=== PATIENT | male | born 1955 | race African-American/Black ===

== ENCOUNTER 2019-04-27 06:50 | Outpatient (CLI) | payer OTHER ==
[2019-04-27 07:51] LABS: Dilantin 13.2 ug/mL (10.0-20.0)
[2019-04-27 07:52] LABS: ALT (SGPT) 44 U/L (8-55); AST (SGOT) 61 U/L (5-34); Albumin 3.8 g/dL (3.4-4.8); Alkaline Phosphatase 87 U/L (40-150); Anion Gap 18 mmol/L (10-20); BUN (Urea Nitrogen) 15 mg/dL (8.4-25.7); Bilirubin, Total 0.5 mg/dL (0.2-1.2); Calc. Creatinine Clearance 0 mL/min (70-130); Calcium 9.5 mg/dL (7.8-10.44); Carbon Dioxide 26 mmol/L (23-31); Chloride 97 mmol/L (98-107); Estimated GFR-MDRD Greater than 90; Globulin 3.4 g/dL (2.4-3.5); Glucose 161 mg/dL (80-115); Potassium 4.2 mmol/L (3.5-5.1); Protein, Total 7.2 g/dL (5.8-8.1); Sodium 137 mmol/L (136-145)
[2019-04-27 08:09] LABS: #Lymphocytes 1.4 thou/uL (1.20-3.40); #Monocytes 0.6 thou/uL (0.11-0.59); #Neutrophils 3.9 thou/uL (1.40-6.50); %Basophils 0.4 % (0.0-1.0); %Eosinophils 0.3 % (0.0-10.0); %Lymphocytes 24.4 % (21.0-51.0); %Monocytes 9.7 % (0.0-10.0); %Neutrophils 65.2 % (42.0-75.0); Hemoglobin 13.7 g/dL (14.0-18.0); Mean Corpuscular Hemoglobin 31.6 pg (27.0-31.0); Mean Corpuscular Volume 98.6 fL (78.0-98.0); Platelet Count 78 thou/uL (130-400); RBC Distribution Width 11.2 % (11.5-14.5); Red Blood Cell (RBC) Count 4.32 mill/uL (4.70-6.10); White Blood Cell (WBC) Count 5.9 thou/uL (4.8-10.8)
[2019-04-27 08:10] LABS: Platelet Morphology Comment Appears Decreased
== END 2019-04-27 06:51 | disposition home or self-care (01) ==
LOC: NAV LAB 06:50
PROVIDERS: ATTEND Internal Medicine
DX: B18.2 Chronic viral hepatitis C (principal); N39.0 Urinary tract infection, site not specified; I10 Essential (primary) hypertension; E11.9 Type 2 diabetes mellitus without complications
CPT/HCPCS: 36415; 80053; 80185; 85025

== ENCOUNTER 2019-05-16 13:40 | Outpatient (CLI) | payer OTHER | END 2019-05-16 13:41 | disposition home or self-care (01) | LOC: NAV LABSP 13:40 | PROVIDERS: ATTEND Internal Medicine | DX: R56.9 Unspecified convulsions (principal) | CPT/HCPCS: 80177; 80185 ==

== ENCOUNTER 2019-05-18 08:02 | Outpatient (CLI) | payer OTHER | END 2019-05-18 08:03 | disposition home or self-care (01) | LOC: NAV LABSP 08:02 | PROVIDERS: ATTEND Internal Medicine | DX: R56.9 Unspecified convulsions (principal) | CPT/HCPCS: 36415; 80185 ==

== ENCOUNTER 2020-01-09 20:37 | Emergency (ER) | payer OTHER ==
[2020-01-09] MEDS ORDERED: Sodium Chloride 0.9% 1,000 ML ONE (21:05)
[2020-01-09] MEDS ORDERED: Ibuprofen 800 MG TAB ONE (21:05)
[2020-01-09] MEDS ORDERED: Cefepime 2 GM VIAL ONE (21:05)
[2020-01-09 21:28] LABS: #Basophils 0.2 thou/uL (0.0-0.2); #Lymphocytes 1.5 thou/uL (1.20-3.40); #Monocytes 0.9 thou/uL (0.11-0.59); #Neutrophils 9.3 thou/uL (1.40-6.50); %Basophils 1.7 % (0.0-1.0); %Eosinophils 0.1 % (0.0-10.0); %Lymphocytes 12.3 % (21.0-51.0); %Monocytes 7.8 % (0.0-10.0); %Neutrophils 78.2 % (42.0-75.0); Hemoglobin 12.7 g/dL (14.0-18.0); Mean Corpuscular HGB CONC 31.8 g/dL (32.0-36.0); Mean Corpuscular Hemoglobin 29.3 pg (27.0-31.0); Mean Corpuscular Volume 92.1 fL (78.0-98.0); Mean Platelet Volume 12.7 fL (7.4-10.4); Platelet Count 202 thou/uL (130-400); RBC Distribution Width 11.5 % (11.5-14.5); Red Blood Cell (RBC) Count 4.33 mill/uL (4.70-6.10); White Blood Cell (WBC) Count 11.8 thou/uL (4.8-10.8)
[2020-01-09 21:41] LABS: ALT (SGPT) 21 U/L (8-55); AST (SGOT) 32 U/L (5-34); Albumin 3.7 g/dL (3.4-4.8); Alkaline Phosphatase 119 U/L (40-110); Anion Gap 18 mmol/L (10-20); BUN (Urea Nitrogen) 15 mg/dL (8.4-25.7); Bilirubin, Total 0.4 mg/dL (0.2-1.2); Calc. Creatinine Clearance 0 mL/min (70-130); Calcium 9.4 mg/dL (7.8-10.44); Carbon Dioxide 23 mmol/L (23-31); Chloride 95 mmol/L (98-107); Estimated GFR-MDRD Greater than 90; Globulin 4.7 g/dL (2.4-3.5); Glucose 314 mg/dL (80-115); Potassium 4.4 mmol/L (3.5-5.1); Protein, Total 8.4 g/dL (5.8-8.1); Sodium 132 mmol/L (136-145)
[2020-01-09 21:44] LABS: Bilirubin Small (Negative); Blood, Urine Moderate (Negative); Glucose, Urine (Dipstick) 500 mg/dL (Negative); Leukocyte Negative (Negative); Nitrite Positive (Negative); Protein, Urine (Dipstick) > or equal to 300 mg/dL (Neg-Trace)
[2020-01-09 21:45] LABS: Clarity Slightly Cloudy (Clear)
[2020-01-09 21:52] LABS: Bacteria/HPF 3+ HPF (None Seen)
--- NOTE | 2020-01-09 22:03 | RAD ---
AP CHEST: History: Cough Comparison: 09-06-16 FINDINGS: Left sided effusion with left basilar infiltrate and/or atelectasis. Lungs otherwise clear. Heart and mediastinum unremarkable. IMPRESSION: Left effusion and left basilar atelectasis/infiltrate. POS: [facility]
== END 2020-01-09 22:48 | disposition short-term general hospital (02) ==
LOC: NAV ERS 20:37
DX: A41.9 Sepsis, unspecified organism (principal); N39.0 Urinary tract infection, site not specified; J18.9 Pneumonia, unspecified organism; I25.10 Atherosclerotic heart disease of native coronary artery without angina pectoris; E11.9 Type 2 diabetes mellitus without complications; I10 Essential (primary) hypertension; F03.90 Unspecified dementia, unspecified severity, without behavioral disturbance, psychotic disturbance, mood disturbance, and anxiety; Z79.84 Long term (current) use of oral hypoglycemic drugs; Z79.899 Other long term (current) drug therapy
CPT/HCPCS: 36415; 51701; 71045; 80053; 80185; 81003; 81015; 82140; 83605; 85025; 87040; 87077; 87086; 87186; 87804; 96365; 96367; J0692; J1956; J7050

== ENCOUNTER 2020-01-16 04:22 | Inpatient (IN) | payer OTHER ==
[2020-01-16] MEDS ORDERED: Sodium Chloride 0.9% 1,000 ML ONE (06:09)
[2020-01-16 06:24] LABS: ALT (SGPT) 29 U/L (8-55); AST (SGOT) 60 U/L (5-34); Albumin 3.7 g/dL (3.4-4.8); Alkaline Phosphatase 178 U/L (40-110); Anion Gap 22 mmol/L (10-20); BUN (Urea Nitrogen) 29 mg/dL (8.4-25.7); Bilirubin, Total 0.8 mg/dL (0.2-1.2); Calc. Creatinine Clearance 0 mL/min (70-130); Calcium 10.1 mg/dL (7.8-10.44); Carbon Dioxide 22 mmol/L (23-31); Chloride 102 mmol/L (98-107); Estimated GFR-MDRD 85; Globulin 5.6 g/dL (2.4-3.5); Glucose 160 mg/dL (80-115); Potassium 4.4 mmol/L (3.5-5.1); Protein, Total 9.3 g/dL (5.8-8.1); Sodium 142 mmol/L (136-145)
[2020-01-16] MEDS ORDERED: Sodium Chloride 0.9% 100 ML ONE (06:30)
[2020-01-16] MEDS ORDERED: Piperacillin/Tazobactam 4.5 GM VIAL ONE (06:30)
[2020-01-16 06:31] LABS: Band 11 % (5-11); Hemoglobin 13.2 g/dL (14.0-18.0); Lymphocytes 18 % (21-51); MDiff Complete? YES; Mean Corpuscular HGB CONC 30.8 g/dL (32.0-36.0); Mean Corpuscular Hemoglobin 28.6 pg (27.0-31.0); Mean Corpuscular Volume 92.9 fL (78.0-98.0); Monocytes 5 % (0-10); Neutrophil 66 % (42-75); Platelet Count 247 thou/uL (130-400); Platelet Morphology Comment Appears Adequate; RBC Distribution Width 12.2 % (11.5-14.5); RBC Morphology Normal; Red Blood Cell (RBC) Count 4.62 mill/uL (4.70-6.10); White Blood Cell (WBC) Count 18.4 thou/uL (4.8-10.8)
[2020-01-16 06:35] LABS: Bilirubin Small (Negative); Blood, Urine Trace (Negative); Clarity Clear (Clear); Glucose, Urine (Dipstick) 250 mg/dL (Negative); Leukocyte Negative (Negative); Nitrite Negative (Negative); Protein, Urine (Dipstick) > or equal to 300 mg/dL (Neg-Trace)
[2020-01-16 06:38] LABS: Bacteria/HPF 1+ HPF (None Seen); RBC/HPF 0-3 HPF (0-3); Squamous Epithelial 0-3 HPF (0-3); WBC/HPF 0-3 HPF (0-3)
[2020-01-16] MEDS ORDERED: Sodium Chloride 0.9% 1,000 ML IV SCH (06:40)
[2020-01-16] MEDS ORDERED: Ondansetron PF 4 MG/2 ML Vial IVP PRN ×2 (06:40→10:55)
[2020-01-16] MEDS ORDERED: Ondansetron ODT 4 MG TAB SL PRN (06:40)
--- NOTE | 2020-01-16 07:59 | RAD ---
XR Chest 1 View Portable HISTORY: Fever, negative test for Covid-19 COMPARISON: 01/09/2020 FINDINGS: The heart size normal. There is a small left pleural effusion with left basilar infiltrate/ atelectatic change.
[2020-01-16] MEDS: Sodium Chloride 0.9% 1,000 ML IV SCH ×2 (08:30→16:24)
[2020-01-16] MEDS ORDERED: Acetaminophen 325 MG TAB PO PRN (09:44)
[2020-01-16] MEDS ORDERED: Dextrose 50% Abboject 50 ML SYRINGE IVP PRN (09:54)
[2020-01-16] MEDS ORDERED: Dextrose 5% in Water 1,000 ML IV PRN (09:54)
[2020-01-16] MEDS ORDERED: ACETAMINOPHEN 650 MG PER TUBE PRN (10:58)
[2020-01-16 11:03] LABS: Lactic Acid 1.2 mmol/L (0.5-2.2)
[2020-01-16] MEDS ORDERED: levETIRAcetam 500 mg/5 ml Oral Solution PER TUBE SCH (11:30)
[2020-01-16] MEDS ORDERED: FLU VACC QS2019-20(6MOS UP)/PF 60 MCG/0.5 ML SYRINGE IM ONE (11:30)
[2020-01-16] MEDS: Piperacillin/Tazobactam 3.375 GM in Sodium Chloride 0.9% 100 ML IVPB SCH ×2 (11:49→17:22)
--- NOTE | 2020-01-16 16:31 | HP ---
HISTORY OF PRESENT ILLNESS: The patient is an unfortunate 64-year-old black male, living at jail for many years because of dementia and altered mental status secondary to most likely hepatic encephalopathy from hepatitis C and alcohol abuse. He has recently been admitted to [facility] for an episode of sepsis syndrome, found to be due to resistant Pseudomonas infection. He was discharged home on fosfomycin orally, but apparently this was unable to be obtained at the jail and for the last three days he has continued to have fever, become progressively worse to 103, minimally responsive. He was therefore sent to [facility] ER, where he was found to be having sepsis syndrome with pulse of 125, blood pressure 148/83, O2 saturation 89% on room air. His temperature was 101.5 after Tylenol at the jail. He was found at the last admission to have also questionable pneumonia, which was being treated also, but felt this was not the cause of his sepsis as he had a chronic left pleural effusion and left basilar atelectasis. As mentioned above, he has a longstanding history of dementia secondary to hepatic encephalopathy from hep C and IV drug abuse and also has recurrent seizures on medications with breakthrough seizures and he is noncompliant. He is a PEG tube feeder, because of his altered mental status and has had episodes of aspiration pneumonia in the past, however, in the emergency room this time, his lungs appeared to be clear. His chest x-ray did show persistent left basilar atelectasis. He had been checked for COVID-19 previously. As mentioned above, had responded to the Zosyn in the [facility] as he was resistant to quinolones. He also has a past history of type 2 diabetes, which has been well controlled and distant coronary artery disease with no recent recurrences. MEDICATIONS: On presentation to the hospital included; 1. Pepcid 20 mg twice daily. 2. Humulin N at 30 units at night, 60 units in the morning with a mild sliding scale. 3. Keppra 750 daily. 4. Metformin 1000 mg twice daily. 5. Zofran as needed. 6. Dilantin 300 mg daily. REVIEW OF SYSTEMS: Unobtainable as he is minimally responsive. PHYSICAL EXAMINATION: VITAL SIGNS: Objective however shows his vital signs to improve markedly with a temperature of 97.9, now pulse down to 101, blood pressure 135/74, O2 sats 96% on 2 L. LUNGS: Clear. CARDIAC: Shows rapid regular rhythm. ABDOMEN: Soft and nontender with PEG tube in place. SKIN/EXTREMITIES: Show decreased skin turgor. No edema, clubbing, cyanosis. NEUROLOGICAL: Showed no focal defects. LABORATORY DATA: Laboratory showed white count of 18,400, hematocrit 42, hemoglobin 13. Sodium 142, potassium 4.4, chloride 102, bicarb 22, BUN 29, creatinine 1.07, glucose 160, calcium 10.1. Lactic acid was slightly elevated at 2.1, total bilirubin 0.8, AST 60, ALT 29. BNP 82. Albumin 3.7. He was given a dose of Zosyn in the emergency room, started on his Dilantin 300 mg per tube daily, his Humulin N 60 units in the morning and 30 units in the evening, Tylenol as needed, Pepcid 20 twice daily, was given a bolus of 1000 saline in the emergency room. ASSESSMENT: 1. Recurrent resistant Pseudomonas urinary tract infection and sepsis. Blood and urine cultures have been drawn and the patient has been started back on his Zosyn. 2. Hepatic encephalopathy with altered mental status. Still not back at baseline as the patient is usually alert, but confused, but now is responsive only to pain, but appears to be in no distress. 3. Seizure disorder, controlled on Dilantin and we will continue the Dilantin and check Dilantin level. 4. Insulin-dependent diabetes, controlled on Humulin N twice daily and sliding scale, as well as metformin and we will continue this. Job ID: [id number]
[2020-01-16] MEDS: metFORMIN 500 MG TAB PER TUBE SCH (17:04)
[2020-01-16] MEDS ORDERED: metFORMIN 500 MG TAB PER TUBE SCH (21:00)
[2020-01-16] MEDS ORDERED: Zantac Syrup 75 MG/5 ML UDCUP PER TUBE SCH (21:00)
[2020-01-16] MEDS ORDERED: Famotidine 20 MG TAB PER TUBE SCH (21:00)
[2020-01-16] MEDS: Famotidine 20 MG TAB PER TUBE SCH (21:36)
[2020-01-16] MEDS: NPH, Human Insulin Isophane 300 UNIT/3 ML VIAL SC SCH (21:36)
[2020-01-17] MEDS: Piperacillin/Tazobactam 3.375 GM in Sodium Chloride 0.9% 100 ML IVPB SCH ×5 (00:23→23:49)
[2020-01-17] MEDS: Sodium Chloride 0.9% 1,000 ML IV SCH ×2 (02:48→12:04)
[2020-01-17 06:23] LABS: ALT (SGPT) 22 U/L (8-55); AST (SGOT) 45 U/L (5-34); Alkaline Phosphatase 144 U/L (40-110); Anion Gap 17 mmol/L (10-20); BUN (Urea Nitrogen) 19 mg/dL (8.4-25.7); Bilirubin, Total 0.9 mg/dL (0.2-1.2); Calc. Creatinine Clearance 101 mL/min (70-130); Calcium 8.7 mg/dL (7.8-10.44); Carbon Dioxide 21 mmol/L (23-31); Chloride 109 mmol/L (98-107); Estimated GFR-MDRD Greater than 90; Globulin 4.3 g/dL (2.4-3.5); Glucose 167 mg/dL (80-115); Potassium 3.8 mmol/L (3.5-5.1); Protein, Total 7.3 g/dL (5.8-8.1); Sodium 143 mmol/L (136-145)
[2020-01-17 06:29] LABS: #Basophils 0.1 thou/uL (0.0-0.2); #Eosinphils 0.1 thou/uL (0.0-0.7); #Lymphocytes 1.1 thou/uL (1.20-3.40); #Monocytes 0.7 thou/uL (0.11-0.59); #Neutrophils 7.4 thou/uL (1.40-6.50); %Basophils 0.7 % (0.0-1.0); %Eosinophils 0.6 % (0.0-10.0); %Monocytes 7.3 % (0.0-10.0); %Neutrophils 79.5 % (42.0-75.0); Hypochromia SLIGHT = 6-15 cells (100X) (0-5/hpf); MDiff Complete? YES; Mean Corpuscular HGB CONC 30.6 g/dL (32.0-36.0); Mean Corpuscular Volume 94.9 fL (78.0-98.0); Mean Platelet Volume 11.3 fL (7.4-10.4); Platelet Count 158 thou/uL (130-400); Platelet Morphology Comment Appears Adequate; RBC Distribution Width 12.8 % (11.5-14.5); Red Blood Cell (RBC) Count 3.45 mill/uL (4.70-6.10); White Blood Cell (WBC) Count 9.4 thou/uL (4.8-10.8)
[2020-01-17] MEDS: metFORMIN 500 MG TAB PER TUBE SCH ×2 (08:39→16:45)
[2020-01-17] MEDS: Famotidine 20 MG TAB PER TUBE SCH ×2 (08:40→21:37)
[2020-01-17] MEDS: levETIRAcetam 500 mg/5 ml Oral Solution PER TUBE SCH (08:41)
[2020-01-17] MEDS: NPH, Human Insulin Isophane 300 UNIT/3 ML VIAL SC SCH ×2 (08:44→21:37)
[2020-01-17] MEDS ORDERED: levETIRAcetam 500 mg/5 ml Oral Solution PER TUBE SCH (09:00)
[2020-01-17] MEDS ORDERED: PHENYTOIN 125 MG PER TUBE SCH (09:00)
[2020-01-17] MEDS ORDERED: LEVETIRACETAM 750 MG PER TUBE SCH (09:00)
[2020-01-17] MEDS: Insulin Regular 300 UNITS/3 ML VIAL SC PRN (12:28)
[2020-01-17 14:47] VITALS: BMI 21.8
[2020-01-17 17:40] LABS: #Lymphocytes 1.1 thou/uL (1.20-3.40); #Monocytes 0.5 thou/uL (0.11-0.59); #Neutrophils 5.6 thou/uL (1.40-6.50); %Basophils 0.4 % (0.0-1.0); %Eosinophils 0.7 % (0.0-10.0); %Lymphocytes 14.9 % (21.0-51.0); %Monocytes 6.3 % (0.0-10.0); %Neutrophils 77.7 % (42.0-75.0); Hemoglobin 9.5 g/dL (14.0-18.0); Mean Corpuscular HGB CONC 30.6 g/dL (32.0-36.0); Mean Corpuscular Hemoglobin 28.8 pg (27.0-31.0); Mean Platelet Volume 11.2 fL (7.4-10.4); Platelet Count 165 thou/uL (130-400); RBC Distribution Width 12.7 % (11.5-14.5); White Blood Cell (WBC) Count 7.3 thou/uL (4.8-10.8)
[2020-01-17 18:11] LABS: Anion Gap 16 mmol/L (10-20); BUN (Urea Nitrogen) 16 mg/dL (8.4-25.7); Calc. Creatinine Clearance 108 mL/min (70-130); Calcium 8.7 mg/dL (7.8-10.44); Carbon Dioxide 22 mmol/L (23-31); Chloride 109 mmol/L (98-107); Estimated GFR-MDRD Greater than 90; Glucose 126 mg/dL (80-115); Potassium 3.7 mmol/L (3.5-5.1); Sodium 143 mmol/L (136-145)
--- NOTE | 2020-01-17 19:40 | PRG ---
DATE OF SERVICE: 01/17/2020 SUBJECTIVE: The patient is awake and alert at baseline mental status, confused, but in no distress. He is having no shortness of breath, nausea, vomiting, fever, or chills. LABORATORY DATA: Shows white count is down to 7300; hematocrit is 31; hemoglobin 9.5, this is a marked decrease from admission 13.2, but stable from this morning of 10.0. BUN has decreased slightly from 29 to 16 and creatinine has decreased also from 1.07 to 0.69. Lactic acid was 2.1 this morning and has decreased to 1.2. OBJECTIVE: VITAL SIGNS: Temperature still slightly elevated at 100.1, pulse is 103, respirations 20, O2 sats 92% on room air, and blood pressure is elevated at 165/84. LUNGS: Clear. CARDIAC: Showed regular rhythm. ABDOMEN: Soft and nontender. PEG tube is functioning well. CHEST: There is no cardiomegaly. Small left pleural effusion. ASSESSMENT: 1. Resolving resistant Pseudomonas urinary tract infection, on IV Zosyn. 2. Decreased hemoglobin, most likely due to rehydration. He has also has had improvement in his BUN and creatinine significantly. 3. Stable dementia at baseline. 4. Type 2 diabetes, controlled to goal with Accu-Cheks ranged from 120 to 148. 5. Evidence of sepsis, resolved completely with lactic acid down from 2.1 to 1.2. PLAN: 1. Stool guaiac to ensure that decreased hemoglobin is only from rehydration. 2. Continue Zosyn 3.37 every 6 hours. 3. Discontinue IV fluids. This patient appears to be rehydrated. 4. Await results of blood culture. 5. Continue PEG tube feeding as previously. 6. Continue metformin, insulin, and sliding scale as a diabetes control to goal. Job ID: [id number]
[2020-01-17] MEDS ORDERED: Sodium Chloride 0.9% 10 ML ONE (23:27)
[2020-01-18] MEDS: Insulin Regular 300 UNITS/3 ML VIAL SC PRN ×3 (05:00→17:10)
[2020-01-18] MEDS: Piperacillin/Tazobactam 3.375 GM in Sodium Chloride 0.9% 100 ML IVPB SCH ×3 (05:00→17:10)
[2020-01-18] MEDS: levETIRAcetam 500 mg/5 ml Oral Solution PER TUBE SCH (09:05)
[2020-01-18] MEDS: Famotidine 20 MG TAB PER TUBE SCH ×2 (09:06→21:48)
[2020-01-18] MEDS: NPH, Human Insulin Isophane 300 UNIT/3 ML VIAL SC SCH ×2 (09:06→21:47)
[2020-01-18] MEDS: metFORMIN 500 MG TAB PER TUBE SCH ×2 (09:06→17:10)
[2020-01-18] MEDS ORDERED: Lisinopril 10 MG TAB PO SCH (09:45)
[2020-01-18] MEDS ORDERED: Fosfomycin 3 GM/Packet PER TUBE SCH (10:00)
[2020-01-19] MEDS: Piperacillin/Tazobactam 3.375 GM in Sodium Chloride 0.9% 100 ML IVPB SCH ×5 (00:14→23:28)
[2020-01-19] MEDS ORDERED: Lisinopril 10 MG TAB PO SCH ×3 (09:00→17:00)
[2020-01-19] MEDS: NPH, Human Insulin Isophane 300 UNIT/3 ML VIAL SC SCH ×2 (09:49→21:27)
[2020-01-19] MEDS: metFORMIN 500 MG TAB PER TUBE SCH ×2 (09:51→17:14)
[2020-01-19] MEDS: levETIRAcetam 500 mg/5 ml Oral Solution PER TUBE SCH (09:51)
[2020-01-19] MEDS: Famotidine 20 MG TAB PER TUBE SCH ×2 (09:52→21:26)
[2020-01-19] MEDS: Insulin Regular 300 UNITS/3 ML VIAL SC PRN ×2 (12:45→17:06)
--- NOTE | 2020-01-19 17:00 | PRG ---
DATE OF SERVICE: 01/18/2020 SUBJECTIVE: The patient feels well, alert, back to baseline with confused mental status, in no respiratory distress. LABORATORY DATA: Shows white count 7300, hematocrit 31, hemoglobin 9.5. Accu-Cheks range 123 to 199. Sodium 143, potassium 3.7, chloride 109, bicarb 22, BUN 16, creatinine 0.69, glucose 126, calcium 8.7. Urinalysis, normal limits. Blood culture showing no growth. Occult blood stool was negative. OBJECTIVE: ABDOMEN: Soft, nontender. SKIN/EXTREMITIES: Show no edema, clubbing, or cyanosis. NEUROLOGIC: Intact. ASSESSMENT: 1. Resolving resistant Pseudomonas infection, now on Zosyn and IV fluids. 2. Type 2 diabetes, controlled to goal. 3. Resolved sepsis syndrome. 4. Stable metabolic encephalopathy secondary to chronic hepatic disease and previous drug abuse. 5. Seizure disorder, controlled to goal. PLAN: 1. Discontinue IV fluids. Continue IV Zosyn as the patient failed on oral antibiotics in the past. 2. Continue to monitor vital signs closely and adjust blood pressure medicines if needed. 3. Continue Accu-Cheks to monitor and titrate, and control diabetes. Job ID: [id number]
--- NOTE | 2020-01-19 17:04 | PRG ---
DATE OF SERVICE: 01/19/2020 SUBJECTIVE: The patient feels well. No complaints. Awake and alert. No distress. Nurses, however, states he is having multiple liquid stools. OBJECTIVE: VITAL SIGNS: Blood pressure consistently elevated to 162 to 198, on his lisinopril 10 mg in the morning despite having increase of 10 mg this morning and still elevated this afternoon of 168/85; temperature is 98; pulse is 115 to 136; and O2 sats 94% on room air. LABORATORY DATA: Show most recent BUN 16, creatinine 0.69, sodium 143, and potassium 3.7. Accu-Cheks still fairly well controlled, 172 to 199. ASSESSMENT: 1. New onset of diarrhea of unknown etiology, possibly Clostridium difficile. The patient on high-dose antibiotics. 2. Resolving Pseudomonas sepsis syndrome, urinary tract infection, on Zosyn. 3. Persistent tachycardia and pulmonary congestion as well as elevated blood pressure. We will add amlodipine 5 mg at night and increase lisinopril 20 daily. We will obtain EKG and chest x-ray. Job ID: [id number]
--- NOTE | 2020-01-19 17:55 | RAD ---
RADIOGRAPH CHEST 1 VIEW: DATE: 01/19/2020 TIME: 5:44 PM HISTORY: 64-year-old male with "congestive heart failure and " COMPARISON: 01/16/2020 FINDINGS: Indistinctness of left hemidiaphragm. Hypoinflated lungs. Partial opacification of left lower lobe, o nly partially visualized because of the low lung volumes. No consolidation visualized elsewhere. No pneumothorax. No interval change in the thoracic cavity since the prior studies. However, there is a new finding of gaseous gastric distention. IMPRESSION: 1. Small left pleural effusion 2. Left lower lobe atelectasis or infiltrate, only partially visualized. A lateral view would be usef ul. 3. No interval change.
[2020-01-19] MEDS ORDERED: Amlodipine 5 MG TAB PO SCH (21:00)
[2020-01-20] MEDS ORDERED: Amlodipine 5 MG TAB PO SCH (04:45)
[2020-01-20] MEDS ORDERED: Lisinopril 20 MG TAB PO SCH ×2 (04:45→09:00)
[2020-01-20] MEDS: Piperacillin/Tazobactam 3.375 GM in Sodium Chloride 0.9% 100 ML IVPB SCH ×4 (05:36→23:44)
[2020-01-20] MEDS: Insulin Regular 300 UNITS/3 ML VIAL SC PRN ×3 (05:37→17:09)
[2020-01-20] MEDS: NPH, Human Insulin Isophane 300 UNIT/3 ML VIAL SC SCH ×2 (10:36→20:43)
[2020-01-20] MEDS: metFORMIN 500 MG TAB PER TUBE SCH ×2 (10:36→17:09)
[2020-01-20] MEDS: Famotidine 20 MG TAB PER TUBE SCH ×2 (10:36→20:42)
[2020-01-20] MEDS: levETIRAcetam 500 mg/5 ml Oral Solution PER TUBE SCH (12:23)
[2020-01-20] MEDS ORDERED: levETIRAcetam 500 mg/5 ml Oral Solution PER TUBE SCH (13:45)
--- NOTE | 2020-01-20 15:14 | DIS ---
DATE OF ADMISSION: 01/16/2020 DATE OF DISCHARGE: 01/20/2020 FINAL DIAGNOSES: 1. Resistant Pseudomonas urinary tract infection with failure of outpatient oral antibiotics and sepsis syndrome. 2. Seizure disorder, controlled on Keppra. 3. Type 2 diabetes, controlled to goal metformin. 4. Metabolic encephalopathy secondary to underlying hepatic encephalopathy and drug abuse with superimposed encephalopathy from recent seizures. 5. History of coronary artery disease with no recurrence . HOSPITAL COURSE: The patient is a 64-year-old black male, well known to myself. The patient has recently been in [facility] for sepsis secondary to a resistant Pseudomonas infection, responded to IV Zosyn, but was discharged home on fosfomycin and failed with recurrent fever to 103 and deterioration on response view. Therefore, he presented to the [facility] ER and found to have sepsis again with a pulse of 125, blood pressure 148/83, O2 saturation 89% on room air, and temperature is 101.5. White count is up to 18,400. Lungs are clear. Cardiac examination showed . Abdomen was soft and nontender. Skin and extremities showed no edema. Laboratory showed BUN was 29, creatinine was 1.07, sodium was 142, potassium 4.4, chloride 102, glucose was 160. Lactate was elevated at 2.1. Total bilirubin was 0.8. BNP was normal at 82. He was therefore treated for sepsis with bolus IV saline 1000 mL, started back on his Zosyn that he had responded to at [facility]. Continue the seizure precautions with Dilantin and Keppra per PEG. Continue with Accu-Cheks to monitor and titrate and control diabetes as well as his prehospitalization Humulin-N and continued with his tube feeding. He responded fairly quickly with slowly improving mentation back to his baseline confusion, but with no distress. His urine and blood culture revealed no growth, but his white count quickly decreased to normal at 9400 with hematocrit of 32 and hemoglobin 10. Accu-Cheks stabilized between 160 and 200. His hemoglobin, however, decreased significantly also from 13 to 10, but then stabilized at 9.5 and is felt this is possibly due to rehydration as his creatinine also decreased from 1.07 to 0.6 and his BUN decreased from 29 to 16. He had a stool guaiac done, which is guaiac negative. Therefore, he is felt to be stable, was continued on his IV Zosyn, continued back to his baseline, but was felt to require continued IV Zosyn because of recurrence with quick discontinuation of previous admission and therefore was transferred to the skilled unit to continue a full 7-day course of Zosyn. He will also have a repeat CBC and BMP to ensure stabilization of his hemoglobin and his renal function. Job ID: [id number]
[2020-01-20] MEDS: Amlodipine 5 MG TAB PO SCH (20:41)
[2020-01-21] MEDS: Piperacillin/Tazobactam 3.375 GM in Sodium Chloride 0.9% 100 ML IVPB SCH ×3 (05:28→19:09)
[2020-01-21] MEDS: metFORMIN 500 MG TAB PER TUBE SCH ×2 (08:36→17:48)
[2020-01-21] MEDS: NPH, Human Insulin Isophane 300 UNIT/3 ML VIAL SC SCH ×2 (08:36→20:26)
[2020-01-21] MEDS: Lisinopril 20 MG TAB PO SCH (08:37)
[2020-01-21] MEDS: levETIRAcetam 500 mg/5 ml Oral Solution PER TUBE SCH (08:37)
[2020-01-21] MEDS: Famotidine 20 MG TAB PER TUBE SCH ×2 (08:37→20:23)
[2020-01-21] MEDS: Insulin Regular 300 UNITS/3 ML VIAL SC PRN ×2 (12:09→17:48)
[2020-01-21] MEDS ORDERED: Sodium Chloride 0.9% 10 ML ONE (17:39)
[2020-01-21] MEDS: Amlodipine 5 MG TAB PO SCH (20:24)
[2020-01-22] MEDS: Piperacillin/Tazobactam 3.375 GM in Sodium Chloride 0.9% 100 ML IVPB SCH ×5 (00:41→23:49)
[2020-01-22] MEDS: Insulin Regular 300 UNITS/3 ML VIAL SC PRN ×2 (05:21→12:33)
[2020-01-22] MEDS: metFORMIN 500 MG TAB PER TUBE SCH ×2 (08:43→17:31)
[2020-01-22] MEDS: levETIRAcetam 500 mg/5 ml Oral Solution PER TUBE SCH (08:44)
[2020-01-22] MEDS: Lisinopril 20 MG TAB PO SCH (08:44)
[2020-01-22] MEDS: NPH, Human Insulin Isophane 300 UNIT/3 ML VIAL SC SCH ×2 (08:48→20:56)
[2020-01-22] MEDS: Famotidine 20 MG TAB PER TUBE SCH ×2 (08:48→20:17)
--- NOTE | 2020-01-22 17:24 | PRG ---
DATE OF SERVICE: 01/22/2020 SUBJECTIVE: Mr. Wong is resting comfortably. No further diarrhea. He is tolerating his tube feeds. Discussed with nursing. OBJECTIVE: VITAL SIGNS: He is afebrile. Heart rate is still 117, sinus tachycardia, respiratory rate is 20, oxygen saturation 96% on room air, blood pressure was 164/78. CARDIOVASCULAR: S1 and S2 plus. RESPIRATORY: Normal vesicular breath sounds. ABDOMEN: Soft, nontender. Bowel sounds heard in all quadrants. PEG tube in place. EXTREMITIES: Without cyanosis or clubbing. CENTRAL NERVOUS SYSTEM: Generalized weakness. IMPRESSION: 1. Diabetes mellitus type 2. 2. Seizure disorder. 3. History of hepatitis C. 4. Dementia. 5. Deconditioning. 6. Resolved diarrhea. PLAN: 1. Continue current medications. 2. Nutritional support with tube feeds. 3. Accu-Cheks with sliding scale coverage. 4. Seizure precautions. 5. PEG tube care. 6. DVT prophylaxis with PlexiPulses. 7. Decubitus precautions. 8. Stress ulcer prophylaxis. 9. Dr. Mejias [facility]. Job ID: [id number]
[2020-01-22] MEDS ORDERED: Carvedilol 3.125 MG TAB PO SCH (19:45)
[2020-01-22] MEDS: Amlodipine 5 MG TAB PO SCH (20:16)
[2020-01-23] MEDS: Insulin Regular 300 UNITS/3 ML VIAL SC PRN ×3 (05:36→17:23)
[2020-01-23] MEDS: Piperacillin/Tazobactam 3.375 GM in Sodium Chloride 0.9% 100 ML IVPB SCH ×3 (05:37→19:54)
[2020-01-23] MEDS ORDERED: Carvedilol 3.125 MG TAB PO SCH (09:00)
[2020-01-23] MEDS: NPH, Human Insulin Isophane 300 UNIT/3 ML VIAL SC SCH ×2 (10:10→21:31)
[2020-01-23] MEDS: metFORMIN 500 MG TAB PER TUBE SCH ×2 (10:10→17:17)
[2020-01-23] MEDS: Famotidine 20 MG TAB PER TUBE SCH ×2 (10:11→21:30)
[2020-01-23] MEDS: Lisinopril 20 MG TAB PO SCH (10:11)
[2020-01-23] MEDS: levETIRAcetam 500 mg/5 ml Oral Solution PER TUBE SCH (10:11)
[2020-01-23 10:57] LABS: ALT (SGPT) 47 U/L (8-55); AST (SGOT) 86 U/L (5-34); Albumin 3.1 g/dL (3.4-4.8); Alkaline Phosphatase 162 U/L (40-110); Anion Gap 21 mmol/L (10-20); BUN (Urea Nitrogen) 29 mg/dL (8.4-25.7); Calc. Creatinine Clearance 97 mL/min (70-130); Calcium 9.3 mg/dL (7.8-10.44); Carbon Dioxide 20 mmol/L (23-31); Chloride 108 mmol/L (98-107); Estimated GFR-MDRD Greater than 90; Globulin 4.4 g/dL (2.4-3.5); Glucose 266 mg/dL (80-115); Potassium 4.2 mmol/L (3.5-5.1); Protein, Total 7.5 g/dL (5.8-8.1); Sodium 145 mmol/L (136-145)
[2020-01-23 11:08] LABS: #Basophils 0.2 thou/uL (0.0-0.2); #Lymphocytes 1.5 thou/uL (1.20-3.40); #Monocytes 0.9 thou/uL (0.11-0.59); #Neutrophils 8.7 thou/uL (1.40-6.50); %Basophils 1.4 % (0.0-1.0); %Eosinophils 0.4 % (0.0-10.0); %Lymphocytes 13.4 % (21.0-51.0); %Monocytes 7.5 % (0.0-10.0); %Neutrophils 77.4 % (42.0-75.0); Hemoglobin 8.8 g/dL (14.0-18.0); Mean Corpuscular HGB CONC 30.5 g/dL (32.0-36.0); Mean Corpuscular Hemoglobin 29.6 pg (27.0-31.0); Mean Corpuscular Volume 96.8 fL (78.0-98.0); Mean Platelet Volume 13.4 fL (7.4-10.4); Platelet Count 207 thou/uL (130-400); RBC Distribution Width 16.4 % (11.5-14.5); Red Blood Cell (RBC) Count 2.97 mill/uL (4.70-6.10); White Blood Cell (WBC) Count 11.3 thou/uL (4.8-10.8)
[2020-01-23] MEDS: Carvedilol 6.25 MG TAB PO SCH (17:23)
--- NOTE | 2020-01-23 17:24 | PRG ---
DATE OF SERVICE: 01/23/2020 SUBJECTIVE: The patient is lying in the bed, awake and alert at baseline. Mental status appears to be in no distress. His IV has infiltrated and has been unable to be started. He has received 7 days of IV Zosyn for his resistant Pseudomonas infection and will be monitored off this as he has no sensitivities to oral antibiotics. He has had significant hypertension, which is being treated with multiple antihypertensives, but only low-dose beta-blockade. OBJECTIVE: VITAL SIGNS: His vital signs at this time show him to have temperature of 97.3, pulse 115, respirations 20, O2 saturations 96%, and blood pressure 145/83. LUNGS: Clear. CARDIAC: Shows a rapid regular rhythm. ABDOMEN: Soft and nontender. SKIN/EXTREMITIES: Show no edema, clubbing, or cyanosis. LABORATORY DATA: White count is 11,300, hematocrit 28, and hemoglobin 8.8. Sodium is 145, potassium 4.2, chloride 108, bicarb 20, BUN 29, and creatinine 0.7. Accu-Chek 296 and consistently above 150 recently. Albumin 3.1, and alkaline phosphatase 162. ASSESSMENT AND PLAN: 1. Resistant Pseudomonas urinary tract infection with sepsis syndrome, now after 7 days of IV antibiotics with discontinuation of IV secondary to inability to maintain IV. 2. Persistent tachycardia, possibly due to early sepsis syndrome and we will obtain procalcitonin and lactate, but we will increase beta-blockade with increase in the carvedilol from 3.125 to 12.5 twice daily. 3. Hypertension, worsened recently and we will monitor with increased carvedilol. 4. Uncontrolled diabetes, on Humulin N 60 units morning, 30 units at night and will increase to 75 units in the morning, 35 at night and monitor response. Job ID: [id number]
[2020-01-23] MEDS ORDERED: Sodium Chloride 0.9% 1,000 ML IV SCH ×2 (18:15→21:30)
[2020-01-23 21:09] LABS: Lactic Acid 6.3 mmol/L (0.5-2.2)
[2020-01-23] MEDS: Amlodipine 5 MG TAB PO SCH (21:30)
[2020-01-24] MEDS: Piperacillin/Tazobactam 3.375 GM in Sodium Chloride 0.9% 100 ML IVPB SCH ×4 (00:33→17:49)
[2020-01-24] MEDS: Sodium Chloride 0.9% 1,000 ML IV SCH ×2 (00:34→12:54)
[2020-01-24] MEDS: Amlodipine 5 MG TAB PO SCH ×2 (00:34→20:07)
[2020-01-24] MEDS: Insulin Regular 300 UNITS/3 ML VIAL SC PRN ×3 (05:27→20:11)
[2020-01-24 05:30] LABS: #Basophils 0.1 thou/uL (0.0-0.2); #Eosinphils 0.1 thou/uL (0.0-0.7); #Lymphocytes 1.6 thou/uL (1.20-3.40); #Monocytes 0.8 thou/uL (0.11-0.59); #Neutrophils 9.1 thou/uL (1.40-6.50); %Basophils 0.7 % (0.0-1.0); %Eosinophils 0.5 % (0.0-10.0); %Lymphocytes 13.7 % (21.0-51.0); %Monocytes 6.7 % (0.0-10.0); %Neutrophils 78.5 % (42.0-75.0); Hemoglobin 7.7 g/dL (14.0-18.0); Mean Corpuscular HGB CONC 30.8 g/dL (32.0-36.0); Mean Corpuscular Hemoglobin 29.8 pg (27.0-31.0); Mean Corpuscular Volume 96.8 fL (78.0-98.0); Mean Platelet Volume 11.7 fL (7.4-10.4); Platelet Count 200 thou/uL (130-400); RBC Distribution Width 18.1 % (11.5-14.5); Red Blood Cell (RBC) Count 2.58 mill/uL (4.70-6.10); White Blood Cell (WBC) Count 11.6 thou/uL (4.8-10.8)
[2020-01-24 05:44] LABS: Anion Gap 18 mmol/L (10-20); BUN (Urea Nitrogen) 27 mg/dL (8.4-25.7); Calc. Creatinine Clearance 93 mL/min (70-130); Calcium 8.4 mg/dL (7.8-10.44); Carbon Dioxide 21 mmol/L (23-31); Chloride 112 mmol/L (98-107); Estimated GFR-MDRD Greater than 90; Glucose 209 mg/dL (80-115); Sodium 147 mmol/L (136-145)
[2020-01-24] MEDS ORDERED: EPINEPHrine 1 MG/10 ML Abboject SYRINGE ONE (09:00)
[2020-01-24] MEDS ORDERED: NPH, Human Insulin Isophane 300 UNIT/3 ML VIAL SC SCH (09:00)
--- NOTE | 2020-01-24 09:08 | RAD ---
EXAM: Portable chest PROVIDED CLINICAL HISTORY: CHF/pneumonia COMPARISON: 01/19/2020 FINDINGS: Cardiac and mediastinal silhouette is unchanged in appearance. The lungs are hypoinflated, limiting e valuation. Blunting of each costophrenic angle may reflect pleural fluid. IMPRESSION: Hypoinflated exam.
--- NOTE | 2020-01-24 09:46 | CT ---
EXAM: CT Abdomen Pelvis WO Con PROVIDED CLINICAL HISTORY: Recurrent Pseudomonas pyelonephritis COMPARISON: None FINDINGS: There are partially visualized at least moderate pleural effusions. Adjacent subsegmental atelectasis . The solid abdominal organs are suboptimally evaluated in the absence of IV contrast material. There i s no evidence for hydronephrosis. Hypodensity involving left kidney, incompletely characterized in the absence of IV contrast but statistically reflecting a cyst. There is a peripheral nodular contour to the liver suggesting cirrhosis. Gallstones are seen within the nondistended gallbladder. Gastrostomy tube is noted within the stomach. There is moderate-severe rectal and sigmoid colonic fec al retention. There is no evidence for bowel obstruction. No inflammatory fat stranding, free fluid or free air apparent. The appendix appears normal. Vascular calcifications are demonstrated. A right femoral catheter and Mckeon catheter are demonstrate d. Several approximately 1 cm lytic lesions are demonstrated involving the anterior superior iliac spine on the left. Lytic changes are noted involving the posterior aspect of the L5 vertebral body wi th soft tissue density seen within the ventral aspects of the lumbar canal. Lytic lesion demonstrated involving the right superior iliac bone medially. Additional lytic foci are demonstrated within the regional skeleton. IMPRESSION: 1. Multifocal osseous lytic change suspicious for metastatic disease, myeloma or less likely dissemin ated infection. 2. At least moderate bilateral pleural fluid. 3. Chronic findings as above.
--- NOTE | 2020-01-24 09:50 | CT ---
EXAM: CT Chest WO Con PROVIDED CLINICAL HISTORY: Shortness of breath COMPARISON: None FINDINGS: The heart, pericardium and great vessels are suboptimally evaluated in the absence of IV contrast mat erial. Vascular calcification is demonstrated. Evaluation for thoracic lymph node enlargement is limited. Possible right hilar lymph node enlargemen t. The airway appears patent and of normal caliber. Moderate bilateral pleural fluid with adjacent subsegmental atelectatic change. No focal consolidatio n is evident. Numerous lytic foci are seen throughout the thoracic spine with extraosseous soft tissue density pote ntially affecting the foramen right of midline at T5-6. IMPRESSION: 1. Numerous lytic foci involving the thoracic spine. Differential considerations include metastatic d isease, myeloma and less likely disseminated infection. 2. Moderate bilateral pleural fluid. 3. Possible right hilar lymph node enlargement.
[2020-01-24] MEDS: Vancomycin HCl 1 GM in Sodium Chloride 0.9% 250 ML 250 ML IVPB SCH ×2 (09:57→20:07)
[2020-01-24] MEDS: Famotidine 20 MG TAB PER TUBE SCH ×2 (09:59→20:07)
[2020-01-24] MEDS: Lisinopril 20 MG TAB PO SCH (09:59)
[2020-01-24] MEDS: Carvedilol 6.25 MG TAB PO SCH ×2 (09:59→17:50)
[2020-01-24] MEDS: levETIRAcetam 500 mg/5 ml Oral Solution PER TUBE SCH (09:59)
[2020-01-24] MEDS: metFORMIN 500 MG TAB PER TUBE SCH ×2 (10:00→17:51)
[2020-01-24 13:13] LABS: Lactic Acid 4.8 mmol/L (0.5-2.2)
[2020-01-24] MEDS ORDERED: Sodium Chloride 0.9% 1,000 ML IV SCH (13:15)
--- NOTE | 2020-01-24 13:17 | PRG ---
DATE OF SERVICE: 01/24/2020 SUBJECTIVE: The patient is awake, but appears to be in [id number] distress. No complaints of chest pain. No cough, but is less responsive. OBJECTIVE: LUNGS: Show diffuse rhonchi and rales in the left base. CARDIAC: Examination shows rapid regular rhythm. ABDOMEN: Soft and nontender. VITAL SIGNS: Show temperature 99.9, pulse 114, respirations 24, O2 sats 89% on room air, blood pressure 175/72. LABORATORY DATA: Shows sodium 147, potassium 4.0, chloride 112, bicarb 21, BUN 27, creatinine 0.8, glucose 209 to 228. Lactic acid level this morning is still 6.0. After 2 L of saline and IV fluids last night, calcium is 8.4. BNP is 94. White count 11,600 with hemoglobin down to 7.7, hematocrit 25, 13% lymphocytes, 78% neutrophils. IMAGING DATA: CT scan of the chest showed multiple lytic lesions involving thoracic spine. Moderate bilateral pleural effusions and possible right hilar lymph node enlargement. Chest x-ray only showed hypoinflated examination. CT of the abdomen and pelvis also showed multiple osseous lytic lesions in the lumbar spine consistent with metastatic disease or myeloma. Moderate pleural fluid. ASSESSMENT AND PLAN: A 64-year-old black male with history of recurrent Pseudomonas infection, has been found to have sepsis syndrome with elevated lactate and tachycardia, hypoxia associated also with hypoinflated left lung and bilateral pleural fluid, but also with numerous lytic lesions in the thoracic and lumbar spine. The patient is minimally coherent, unable to give history, but appears to be less responsive today. He has been treated for broad-spectrum antibiotics with Zosyn as well as addition of vancomycin for possible gram-positive infection and has been treated with saline bolus and IV fluids, which has been stopped until the BMP was found to be normal. He has become somewhat hypoxic and will be started on 2 L cannula. He will have a serum protein and urine protein electrophoresis to evaluate for myeloma as it does appear to be this is most likely etiology as he is becoming significantly anemic and does have significant proteinuria. Prognosis is poor, but he will be treated aggressively for infection and will have the results of his electrophoresis return. Since his BNP is normal, we restarted back on IV fluids at 75 mL an hour to ensure good urine output. Job ID: [id number]
[2020-01-24] MEDS: NPH, Human Insulin Isophane 300 UNIT/3 ML VIAL SC SCH (20:09)
[2020-01-24] MEDS ORDERED: Furosemide 40 MG/4 ML VIAL SLOW IVP SCH (21:15)
[2020-01-24 23:32] VITALS: BP 84/45; TEMP 96.3
[2020-01-25] MEDS ORDERED: Furosemide 40 MG/4 ML VIAL SLOW IVP SCH (06:00)
--- NOTE | 2020-01-25 08:19 | DIS ---
DATE OF ADMISSION: 01/16/2020 DATE OF DISCHARGE: 01/25/2020 DATE OF EXPIRATION: January 24, 2020. FINAL DIAGNOSES: Septic shock unknown etiology, most likely due to resistant Pseudomonas infection with a urinary tract infection and sepsis secondary to possible underlying multiple myeloma with multiple lytic lesions noticed in his thoracic and lumbar spine. SECONDARY DIAGNOSES: Metabolic encephalopathy secondary to previous drug abuse and hepatic encephalopathy, as well as type 2 diabetes and seizure disorder. HOSPITAL COURSE: The patient is an unfortunate 64-year-old black male, living in a snf for many years because of dementia and altered mental status secondary to previous hepatic encephalopathy and alcohol abuse, who was initially admitted to [facility] with sepsis syndrome secondary to resistant Pseudomonas infection, appeared to improve, but then once placed on oral antibiotics, had a recurrence of his sepsis with fever, tachycardia, altered mental status, was admitted to [facility], where he felt to have possible pneumonia, left lower lobe infiltrate. His blood cultures were continually no growth during this admission, but he did respond to reinstitution of treatment with Zosyn transiently and appeared to be improving, but then acutely began to deteriorate several days before expiration with increasing tachycardia, tachypnea, was found to be in shock again with elevated lactate. His white count at that time was only elevated to 11,600, but he had progressive anemia decreasing 13 to 10 to 9 to 8 with no evidence of bleeding on stool evaluation and subsequent CT scans of his abdomen and chest showed bilateral effusions, but also showed multiple lytic lesions in his spine consistent with possible metastatic cancer and/or multiple myeloma. He had a protein electrophoresis done prior to expiration, but the results are not back yet. He had no evidence of any malignant lesion on his CT scans. It is felt this most likely was multiple myeloma. Despite aggressive hydration and supplemental oxygen, he became more diaphoretic, tachypneic, maintained a blood pressure until acutely he dropped his blood pressure and then had a respiratory arrest. Despite aggressive CPR, he remained a flat line and then PEA, appeared to have aspirated prior to intubation and it was felt that he was not responding and the resuscitation was discontinued. Family, Mr. Trip Wong was informed. Job ID: [id number]
[2020-01-27 10:37] LABS: A/G Ratio 0.7 (0.7-1.7); Albumin 2.6 g/dL (2.9-4.4); Alpha 1 0.4 g/dL (0.0-0.4); Alpha 2 0.9 g/dL (0.4-1.0); Beta 0.9 g/dL (0.7-1.3); Gamma 1.8 g/dL (0.4-1.8); Globulin, Total 3.9 g/dL (2.2-3.9); M-Spike Not Observed g/dL (Not Observed); Protein Electrophoresis Intrp Note: (.)
[2020-01-27 10:37] LABS: Albumin-Ur 48.7 % (.); Alpha 1 - Ur 2.8 % (.); Alpha 2 - Ur 10.7 % (.); Beta-Ur 19.5 % (.); Gamma-Ur 18.3 % (.); M-Spike,% Not Observed % (Not Observed); Protein, Urine 108.8 mg/dL (Not Estab.)
--- NOTE | 2020-01-28 03:36 | PQF ---
Marvin Anguianoony RATNA TA MD [id number] CLINICAL DOCUMENTATION CLARIFICATION FORM: POST DISCHARGE Addendum to original discharge summary date: ____ Late entry note date: __ DATE: 01/28/2020 ATTN:RATNA TA MD Please exercise your independent, professional judgment in responding to the clarification form. Clinical indicators are provided on the bottom of this form for your review Please check appropriate box(s): [x ] Acute Respiratory Failure: [ ] with Hypoxia[ ] with Hypercapnia [ ] Acute On Chronic Respiratory Failure: [ ] with Hypoxia [ ] with Hypercapnia [ ] Acute Respiratory Failure due to: (etiology) [ ] ARDS (Acute Respiratory Distress Syndrome) [ ] Chronic Respiratory Failure only [ ] with Hypoxia [ ] with Hypercapnia [ ] Hypoxia [ ] Other diagnosis [ ] Unable to determine In addition, please specify: Present on Admission (POA): [ ] Yes [ x ] No [ ] Unable to determine For continuity of documentation, please document condition throughout progress notes and discharge summary. Thank You. CLINICAL INDICATORS - SIGNS / SYMPTOMS / LABS Respiratory arrest- Discharge summary 01/25/20- Ratna Ta MD Appeared to have aspirated- Discharge summary 01/25/20- Ratna Ta MD Hypoxic-- Progress note 01/24/20- Ranta Coleman MD Pulmonary congestion- Progress note- 01/20/20- Ratna Coleman MD Confused metal status- Progress note- 01/19/20- Ratna Coleman MD Small left pleural effusion and atelectasis -H and P 01/16/20 - Ratna Coleman MD O2 sat- 94, 55 01/23, 93, 92 -01/16 , 94- 01/17,93-01/18 ,95-01/19, 91- , 89-01/23 - Vital signs RR- 40 -01/24 , 20- 01/15 , 22-01/17, 22- 01/18 , 20- 01/19 , 22, 36 - 01/21 , 24-01/22-- per Vital signs Diminished breath- 01/24/20- Respiratory clinical panel. RISK FACTORS Septic shock-- Discharge summary 01/25/20- Ratna Ta MD Metabolic encephalopathy- Discharge summary 01/25/20- Ratna Ta MD Advance age [age] years old Discharge summary 01/25/20- Ratna Ta MD Seizure disorder- Discharge summary 01/25/20- Ratna Ta MD Viral URI, Pneumonia- ED provider note 01/16/20- Jonas Hernandez MD TREATMENTS: - Nasal cannula 2 L- Respiratory clinical panel. Lasix- IV- 01/24/2001/24 - As per MAR Vancomycin IV ,Zoysn IV- 01/23-01/24 (This form is maintained as a part of the permanent medical record) 2014 [employer]. All Rights Reserved Laine [email or web address]
--- NOTE | 2020-01-28 03:50 | PQF ---
RATNA Mata MD [id number] CLINICAL DOCUMENTATION CLARIFICATION FORM: POST DISCHARGE Addendum to original discharge summary date: ____ Late entry note date: __ DATE: 01/28/2020 ATTN: RATNA TA MD Please exercise your independent, professional judgment in responding to the clarification form. Clinical indicators are provided on the bottom of this form for your review Please check appropriate box(s): [ ] Acute hepatic encephalopathy [ ] Acute on chronic hepatic encephalopathy [ ] Chronic hepatic encephalopathy [ ] Other diagnosis [ ] Unable to determine For continuity of documentation, please document condition throughout progress notes and discharge summary. Thank You. CLINICAL INDICATORS - SIGNS / SYMPTOMS / LABS - Respiratory arrest- Discharge summary 01/25/20- Ratna Ta MD - Appeared to have aspirated- Discharge summary 01/25/20- Ratna Ta MD Hypoxic-- Progress note 01/24/20- Ratna Coleman MD Pulmonary congestion- Progress note- 01/20/20- Ratna Coleman MD Confused metal status- Progress note- 01/19/20- Ratna Coleman MD lactic Acid-- 2.1- 01/15 4.8, 6.0 - 01/23, 5.6, 6.3 - 01/22 , 4.8 , 6.0- RISK FACTORS Septic shock-- Discharge summary 01/25/20- Ratna Ta MD Metabolic encephalopathy- Discharge summary 01/25/20- Ratna Ta MD Advance age [age] years old Discharge summary 01/25/20- Ratna Ta MD Seizure disorder- Discharge summary 01/25/20- Ratna Ta MD Viral URI, Pneumonia- ED provider note 01/16/20- Jonas Hernandez MD TREATMENTS: Lasix- IV- 01/24/2001/24 - As per JALEEL Normal saline- IV- 01/15- As per DEC Vancomycin IV ,Zoysn IV- 01/23-01/24 As per DEC (This form is maintained as a part of the permanent medical record) 2014 [employer], [employer]. All Rights Reserved Laine [email or web address]
== END 2020-01-25 00:02 | disposition expired | DRG 871 ==
LOC: NAV ERS 04:22 → NAV ACUTE 07:41 → OBSVTOIN 10:55
PROVIDERS: ADMIT Internal Medicine; ATTEND Internal Medicine
PROC: 02HV33Z Insertion of Infusion Device into Superior Vena Cava, Percutaneous Approach (ICD-10-PCS; 2020-01-23)
PROC: 0BH17EZ Insertion of Endotracheal Airway into Trachea, Via Natural or Artificial Opening (ICD-10-PCS; 2020-01-24)
PROC: 5A12012 Performance of Cardiac Output, Single, Manual (ICD-10-PCS; principal; 2020-01-25)
DX: A41.52 Sepsis due to Pseudomonas (principal); R65.21 Severe sepsis with septic shock; G92 Toxic encephalopathy; J96.01 Acute respiratory failure with hypoxia; N39.0 Urinary tract infection, site not specified; C90.00 Multiple myeloma not having achieved remission; G95.89 Other specified diseases of spinal cord; J90 Pleural effusion, not elsewhere classified; R47.01 Aphasia; K72.90 Hepatic failure, unspecified without coma; E11.9 Type 2 diabetes mellitus without complications; G40.909 Epilepsy, unspecified, not intractable, without status epilepticus; F03.90 Unspecified dementia, unspecified severity, without behavioral disturbance, psychotic disturbance, mood disturbance, and anxiety; I46.9 Cardiac arrest, cause unspecified; F10.10 Alcohol abuse, uncomplicated; D64.9 Anemia, unspecified; I10 Essential (primary) hypertension; R13.10 Dysphagia, unspecified; R53.81 Other malaise; B19.20 Unspecified viral hepatitis C without hepatic coma; I25.10 Atherosclerotic heart disease of native coronary artery without angina pectoris; Z79.4 Long term (current) use of insulin; Z93.1 Gastrostomy status; Z87.891 Personal history of nicotine dependence; Z87.01 Personal history of pneumonia (recurrent)
CPT/HCPCS: 36415; 36416; 51701; 71045; 71250; 74176; 80048; 80053; 81003; 81015; 82274; 83605; 83880; 84145; 84165; 84166; 85025; 87040; 87086; 87324; 87449; 87493; 87804; 93005; 96361; 96365; J0171; J1815; J1940; J2543; J3370; J3490; J7050